=== PATIENT | male | born 1960 | race Caucasian/White ===

== ENCOUNTER 2016-12-24 09:57 | Emergency (ER) | payer OTHER, SELFPAY ==
[2016-12-24] MEDS ORDERED: Oseltamivir 75 MG CAP ONE (10:40)
[2016-12-24 10:47] LABS: Lactic Acid - Sepsis 2.2 mmol/L (0.5-2.2)
[2016-12-24 10:57] LABS: ALT (SGPT) 1384 U/L (0-55); AST (SGOT) 1545 U/L (5-34); Alkaline Phosphatase 141 U/L (40-150); Anion Gap 9 mmol/L (10-20); BUN (Urea Nitrogen) 12 mg/dL (8.4-25.7); Bilirubin, Total 2.2 mg/dL (0.2-1.2); Calc. Creatinine Clearance 0 mL/min (70-130); Calcium 7.8 mg/dL (7.8-10.44); Carbon Dioxide 31 mmol/L (22-29); Chloride 93 mmol/L (98-107); Estimated GFR-MDRD Greater than 90; Globulin 3.7 g/dL (2.4-3.5); Lipase 53 U/L (8-78); Protein, Total 6.4 g/dL (6.0-8.3)
[2016-12-24 10:59] LABS: #Lymphocytes 0.9 thou/uL (1.20-3.40); #Monocytes 0.6 thou/uL (0.11-0.59); %Basophils 0.7 % (0.0-1.0); %Eosinophils 0.3 % (0.0-10.0); %Monocytes 12.6 % (0.0-10.0); Hematocrit 47.5 % (42.0-52.0); Mean Platelet Volume 7.3 fL (7.4-10.4); Red Blood Cell (RBC) Count 4.88 mill/uL (4.70-6.10); White Blood Cell (WBC) Count 4.5 thou/uL (4.8-10.8)
--- NOTE | 2016-12-24 18:56 | RAD ---
CHEST TWO VIEWS: Date: 12-24-16 FINDINGS: There is slight increased haziness to the right of the heart compared to other areas. I cannot comp letely exclude a developing infiltrate here. The lungs are otherwise clear. There are no effusions . The heart size is normal and the trachea is midline. IMPRESSION: Possible slight increase in lung markings in the right base medially. POS: HOME
== END 2016-12-24 11:25 ==
LOC: BURERS 09:57
DX: J11.1 Influenza due to unidentified influenza virus with other respiratory manifestations (principal); J18.9 Pneumonia, unspecified organism; Z79.891 Long term (current) use of opiate analgesic; Z79.899 Other long term (current) drug therapy
CPT/HCPCS: 71020; 80053; 83605; 83690; 85025; 94640; J7620

== ENCOUNTER 2017-01-09 14:08 | Emergency (ER) | payer OTHER, SELFPAY ==
[2017-01-09] MEDS ORDERED: Dextrose 50% Abboject 50 ML SYRINGE ONE (14:21)
[2017-01-09 14:46] LABS: Lactic Acid - Sepsis 2.8 mmol/L (0.5-2.2)
[2017-01-09 14:49] LABS: ALT (SGPT) 1083 U/L (0-55); AST (SGOT) 1060 U/L (5-34); Alkaline Phosphatase 231 U/L (40-150); Anion Gap 11 mmol/L (10-20); BUN (Urea Nitrogen) 8 mg/dL (8.4-25.7); Bilirubin, Total 9.9 mg/dL (0.2-1.2); Calc. Creatinine Clearance 0 mL/min (70-130); Calcium 8.7 mg/dL (7.8-10.44); Carbon Dioxide 24 mmol/L (22-29); Chloride 101 mmol/L (98-107); Estimated GFR-MDRD Greater than 90; Globulin 6.7 g/dL (2.4-3.5); Lipase 134 U/L (8-78); Protein, Total 9.2 g/dL (6.0-8.3)
[2017-01-09 14:50] LABS: Troponin I Less than 0.010 ng/mL (< 0.028)
[2017-01-09 15:01] LABS: Hematocrit 45.2 % (42.0-52.0); Mean Platelet Volume 7.5 fL (7.4-10.4)
[2017-01-09 15:02] LABS: Band 1 % (5-11); Neutrophil 69 % (42-75); Reactive Lymphocytes 0 % (0-10); White Blood Cell (WBC) Count 57.4 thou/uL (4.8-10.8)
[2017-01-09 15:03] LABS: Blast 0 % (0-0); Metamyelocyte 0 % (0-0); Myelocyte 0 % (0-0); Nucleated RBC 0 % (0); Promyelocytes 0 % (0-0); Target Cells SLIGHT = 2-5 cells (100X) (0-1/hpf)
[2017-01-09] MEDS ORDERED: cefTRIAXone\\ROCEPHIN 1 GM VIAL ONE (15:49)
[2017-01-09] MEDS ORDERED: Sodium Chloride 0.9% 100 ML ONE (15:49)
--- NOTE | 2017-01-09 22:29 | RAD ---
PORTABLE CHEST 01/09/17 An AP portable film at 1434 is compared with a 12/24/16 study. The heart is normal in size and the lungs are clear. No infiltrate or effusion was seen. There is no vascular congestion or edema. The trachea is midline. IMPRESSION: No acute thoracic findings. POS: HOME
== END 2017-01-09 16:28 | disposition short-term general hospital (02) ==
LOC: BURERS 14:08
DX: A41.9 Sepsis, unspecified organism (principal); K72.90 Hepatic failure, unspecified without coma
CPT/HCPCS: 36416; 71010; 80053; 82140; 82553; 83605; 83690; 84484; 85025; 87040; 93005; 96361; 96374; 96375; J0696; J7050

== ENCOUNTER 2017-02-18 12:53 | Emergency (ER) | payer MEDICAID, OTHER ==
[2017-02-18] MEDS ORDERED: diphenhydrAMINE HCl 50 MG/ML 1 ML VIAL ONE (13:05)
[2017-02-18] MEDS ORDERED: methylPREDNISolone Sod Succ/PF 125 MG/2 ML VIAL ONE (13:05)
== END 2017-02-18 16:02 | disposition home or self-care (01) ==
LOC: BURERS 12:53
DX: T63.461A Toxic effect of venom of wasps, accidental (unintentional), initial encounter (principal); G89.29 Other chronic pain; M54.2 Cervicalgia; M54.9 Dorsalgia, unspecified; B19.20 Unspecified viral hepatitis C without hepatic coma; Z79.899 Other long term (current) drug therapy
CPT/HCPCS: 93005; 96374; 96375; J1200; J2930

== ENCOUNTER 2019-07-27 13:38 | Emergency (ER) | payer OTHER, SELFPAY ==
[2019-07-27 14:04] LABS: #Basophils 0.1 thou/uL (0.0-0.2); #Eosinphils 0.1 thou/uL (0.0-0.7); #Lymphocytes 1.9 thou/uL (1.20-3.40); #Monocytes 0.5 thou/uL (0.11-0.59); #Neutrophils 2.5 thou/uL (1.40-6.50); %Basophils 1.7 % (0.0-1.0); %Eosinophils 2.8 % (0.0-10.0); %Monocytes 9.7 % (0.0-10.0); %Neutrophils 48.8 % (42.0-75.0); Hemoglobin 14.5 g/dL (14.0-18.0); Mean Corpuscular HGB CONC 33.1 g/dL (32.0-36.0); Mean Corpuscular Hemoglobin 31.3 pg (27.0-31.0); Mean Corpuscular Volume 94.7 fL (78.0-98.0); Mean Platelet Volume 6.5 fL (7.4-10.4); Platelet Count 192 thou/uL (130-400); RBC Distribution Width 12.5 % (11.5-14.5); Red Blood Cell (RBC) Count 4.62 mill/uL (4.70-6.10); White Blood Cell (WBC) Count 5.1 thou/uL (4.8-10.8)
[2019-07-27 14:22] LABS: ALT (SGPT) 29 U/L (8-55); AST (SGOT) 39 U/L (5-34); Acetaminophen Less than 6.0 mcg/mL (10.0-30.0); Albumin 3.8 g/dL (3.5-5.0); Alcohol Less than 10 mg/dL (Less than 10); Alkaline Phosphatase 106 U/L (40-150); Anion Gap 14 mmol/L (10-20); BUN (Urea Nitrogen) 15 mg/dL (8.4-25.7); Bilirubin, Total 0.4 mg/dL (0.2-1.2); Calc. Creatinine Clearance 0 mL/min (70-130); Calcium 9.4 mg/dL (7.8-10.44); Carbon Dioxide 26 mmol/L (22-29); Chloride 105 mmol/L (98-107); Estimated GFR-MDRD Greater than 90; Globulin 2.8 g/dL (2.4-3.5); Glucose 98 mg/dL (70-105); Potassium 4.3 mmol/L (3.5-5.1); Protein, Total 6.6 g/dL (6.0-8.3); Salicylate Less than 8.0 mg/dL (15.0-30.0); Sodium 141 mmol/L (136-145)
--- NOTE | 2019-07-27 16:39 | CT ---
CT BRAIN WITHOUT CONTRAST: Date: 07-27-18 FINDINGS: The ventricles are normal in size with no shift. No intracranial bleeding, mass, or sign of stroke wa s found. No edema was seen. The calvarium appears normal. The visible paranasal sinuses and mastoid a ir cells are clear. IMPRESSION: No acute intracranial finding. POS: HOME
--- NOTE | 2019-07-27 16:40 | RAD ---
PORTABLE CHEST: Date: 07-27-18 An AP portable film at 1404 is compared with a 01-09-17 study. FINDINGS: The heart remains normal in size and the lungs are clear. No infiltrate or effusion was seen. There i s no vascular congestion or edema. The mediastinum was unremarkable in appearance. IMPRESSION: No acute thoracic findings. POS: HOME
== END 2019-07-27 15:18 | disposition home or self-care (01) ==
LOC: BURERS 13:38
DX: F15.10 Other stimulant abuse, uncomplicated (principal); R51 Headache
CPT/HCPCS: 36415; 70450; 71045; 80053; 80307; 84484; 85025; 93005

== ENCOUNTER 2020-03-19 14:39 | Emergency (ER) | payer SELFPAY ==
[2020-03-19] MEDS ORDERED: EPINEPHrine 1 MG/ML AMP ONE ×2 (14:44→14:56)
[2020-03-19] MEDS ORDERED: diphenhydrAMINE 50 MG/ML VIAL ONE (14:53)
[2020-03-19] MEDS ORDERED: methylPREDNISolone Sod Succ/PF 125 MG/2 ML VIAL ONE (14:53)
[2020-03-19] MEDS ORDERED: EPINEPHrine 1 MG/10 ML Abboject SYRINGE ONE (14:56)
== END 2020-03-19 17:57 | disposition home or self-care (01) ==
LOC: BURERS 14:39
DX: T63.441A Toxic effect of venom of bees, accidental (unintentional), initial encounter (principal); B19.10 Unspecified viral hepatitis B without hepatic coma; M86.9 Osteomyelitis, unspecified; Z79.899 Other long term (current) drug therapy
CPT/HCPCS: 96372; 96374; 96375; J0171; J1200; J2930

== ENCOUNTER 2021-11-04 00:23 | Emergency (ER) | payer OTHER ==
[2021-11-04] MEDS ORDERED: Famotidine In NaCl 20 mg/50 ml Premix Bag ONE (01:02)
[2021-11-04] MEDS ORDERED: Ondansetron PF 4 MG/2 ML Vial ONE (01:02)
[2021-11-04 01:36] LABS: #Basophils 0.1 thou/uL (0.0-0.2); #Eosinphils 0.1 thou/uL (0.0-0.7); #Lymphocytes 0.3 thou/uL (1.20-3.40); #Monocytes 0.6 thou/uL (0.11-0.59); #Neutrophils 5.4 thou/uL (1.40-6.50); %Basophils 1.4 % (0.0-1.0); %Lymphocytes 5.2 % (21.0-51.0); %Monocytes 9.1 % (0.0-10.0); %Neutrophils 82.3 % (42.0-75.0); Hemoglobin 16.1 g/dL (14.0-18.0); Mean Corpuscular HGB CONC 35.5 g/dL (32.0-36.0); Mean Corpuscular Hemoglobin 32.4 pg (27.0-31.0); Mean Corpuscular Volume 91.2 fL (78.0-98.0); Mean Platelet Volume 7.4 fL (7.4-10.4); Platelet Count 180 thou/uL (130-400); RBC Distribution Width 11.5 % (11.5-14.5); Red Blood Cell (RBC) Count 4.98 mill/uL (4.70-6.10); White Blood Cell (WBC) Count 6.5 thou/uL (4.8-10.8)
[2021-11-04 01:50] LABS: ALT (SGPT) 32 U/L (8-55); AST (SGOT) 34 U/L (5-34); Albumin 4.3 g/dL (3.4-4.8); Alkaline Phosphatase 68 U/L (40-110); Anion Gap 15 mmol/L (10-20); BUN (Urea Nitrogen) 15 mg/dL (8.4-25.7); Bilirubin, Total 0.5 mg/dL (0.2-1.2); Calc. Creatinine Clearance 0 mL/min (70-130); Calcium 9.1 mg/dL (7.8-10.44); Carbon Dioxide 21 mmol/L (23-31); Chloride 104 mmol/L (98-107); Globulin 3.3 g/dL (2.4-3.5); Glucose 125 mg/dL (80-115); Lipase 24 U/L (8-78); Potassium 3.8 mmol/L (3.5-5.1); Protein, Total 7.6 g/dL (5.8-8.1); Sodium 136 mmol/L (136-145)
[2021-11-04] MEDS ORDERED: Ketorolac Tromethamine 30 MG/ML VIAL ONE (02:03)
[2021-11-05 12:06] LABS: SARS-CoV-2 PCR by NAA DETECTED (NotDetected)
== END 2021-11-04 02:44 | disposition home or self-care (01) ==
LOC: BURERS 00:23
DX: U07.1 COVID-19 (principal); J11.1 Influenza due to unidentified influenza virus with other respiratory manifestations; Z79.899 Other long term (current) drug therapy
CPT/HCPCS: 80053; 83690; 85025; 87804; 96365; 96375; J1885; J2405; U0003; U0005

== ENCOUNTER 2022-11-11 20:38 | Emergency (ER) | payer OTHER ==
[2022-11-11] MEDS ORDERED: Budesonide 0.5 MG/2 ML NEB ONE (21:07)
[2022-11-11] MEDS ORDERED: predniSONE 20 MG TAB ONE (21:07)
[2022-11-11] MEDS ORDERED: Azithromycin 250 MG TAB ONE (21:07)
== END 2022-11-11 22:45 | disposition home or self-care (01) ==
LOC: BURERS 20:38
DX: J20.9 Acute bronchitis, unspecified (principal)
CPT/HCPCS: 71045; 87081; 87430; 87804; J7512; J7620; J7626

== ENCOUNTER 2023-06-15 15:49 | Emergency (ER) | payer OTHER ==
[2023-06-15] MEDS ORDERED: Sulfameth/Trimethoprim DS 800-160mg TAB ONE (16:10)
== END 2023-06-15 16:13 | disposition home or self-care (01) ==
LOC: BURERS 15:49
DX: L03.211 Cellulitis of face (principal)
CPT/HCPCS: 99283

== ENCOUNTER 2024-05-08 12:05 | Emergency (ER) | payer OTHER | END 2024-05-08 13:53 | disposition home or self-care (01) | LOC: BURERS 12:05 | DX: M25.532 Pain in left wrist (principal); S30.1XXD Contusion of abdominal wall, subsequent encounter; V89.2XXD Person injured in unspecified motor-vehicle accident, traffic, subsequent encounter | CPT/HCPCS: 72170 ==

== ENCOUNTER 2024-11-01 21:06 | Emergency (ER) | payer OTHER ==
[2024-11-01] MEDS ORDERED: Cephalexin 250 MG CAP ONE (21:53)
== END 2024-11-01 21:54 | disposition home or self-care (01) ==
LOC: BURERS 21:06
DX: S90.422A Blister (nonthermal), left great toe, initial encounter (principal); S90.425A Blister (nonthermal), left lesser toe(s), initial encounter; L03.116 Cellulitis of left lower limb
CPT/HCPCS: 99283